=== PATIENT | female | born 1975 | race Caucasian/White ===

== ENCOUNTER 2016-12-16 19:43 | Emergency (ER) | payer MEDICAID, OTHER ==
[~2016-12-16] VITALS: Ht 157.5 cm; Wt 63.5 kg
[2016-12-16 19:55] VITALS: BP 100/62
--- NOTE | 2016-12-16 19:55 | NUR ---
PT BB SELF AMBULATORY TO ER BED 3 C/O "HEAD INJURY 3 WKS AGO, TODAY FEELING DIZZY" PT AOX3 RR EVEN AND UNLABORED. NO SOB NOTED. NAD NOTED. NO NVD AT THIS TIME. PT GOWNED AND PLACED ON MONTIOR WAITING FOR MD WOLFE.
--- NOTE | 2016-12-16 20:07 | NUR ---
LYLE MACIEL AT BEDSIDE FOR EVAL.
== END 2016-12-16 20:26 | disposition home or self-care (01) ==
LOC: ER 19:49
DX: F07.81 Postconcussional syndrome (principal)
CPT/HCPCS: 99283; A4606; Z7610